=== PATIENT | female | born 1990 | race African-American/Black ===

== ENCOUNTER 2018-04-09 17:00 | Inpatient (IN) | payer OTHER ==
[2018-04-09] MEDS ORDERED: PROMETHAZINE 25 MG/ML VIAL IM PRN (17:23)
[2018-04-09] MEDS ORDERED: BUTORPHANOL 1 MG/ML INJ IV PRN (17:23)
[2018-04-09] MEDS ORDERED: METHYLERGONOVINE 0.2MG/ML AMP IM PRN (17:23)
[2018-04-09] MEDS ORDERED: PENICILLIN 5 MU in NA CHLORIDE 0.9% 100 ML IV ONE (17:23)
[2018-04-09] MEDS ORDERED: Ringers Lactate 1,000 ML IV PRN (17:23)
[2018-04-09] MEDS ORDERED: BUTORPHANOL 1 MG/ML INJ ONE (17:41)
[2018-04-09 17:44] VITALS: BMI 33.0
[2018-04-09 17:49] LABS: RPR Titer ND
[2018-04-09 17:52] LABS: Urine Appearance CLEAR; Urine Bilirubin NEGATIVE (NEG); Urine Blood 1+ (NEG); Urine Color YELLOW; Urine Glucose NEGATIVE (NEG); Urine Protein NEGATIVE (NEG); Urine Specific Gravity <=1.005 (1.005-1.030); Urine Urobilinogen 0.2 mg/dL (0.2-1.0); Urine pH 6.5 (5.0-7.0)
[2018-04-09 17:58] LABS: Absolute Lymphocytes (CBC) 1.4 K/uL (0.7-4.9); Absolute Monocytes 0.9 K/uL (0.1-1.3); Absolute Neutrophil 7.1 K/uL (1.8-8.0); Basophils % 0.2 % (0-1.3); Eosinophils % 0.7 % (0-4.4); Hematocrit 39.2 % (36.0-45.0); MCH 30.8 pg (27.0-35.0); MCV 87.5 fL (80-100); MPV 10.5 fL (7.6-11.3); Monocytes % 9.8 % (3.3-12.3); RBC Red Blood Cell Count 4.48 M/uL (3.86-4.86)
[2018-04-09] MEDS ORDERED: Ringers Lactate 1,000 ML IV SCH (18:00)
[2018-04-09 18:01] LABS: Urine Microscopic Reflex ORDER UMIC
[2018-04-09 18:02] LABS: Urine Bacteria <20 /HPF (<20); Urine Culture Reflex Order NOT NEEDED; Urine RBC <5 /HPF (NONE SEEN)
[2018-04-09] MEDS ORDERED: OXYTOCIN/LR 20 UNIT/1,000 ML BAG IV ONE (18:16)
[2018-04-09] MEDS ORDERED: LIDOCAINE 1% MPF 30 ML VIAL ONE (18:16)
[2018-04-09] MEDS ORDERED: CARBOPROST TROME 250 MCG/ML IM ONE (18:17)
[2018-04-09] MEDS ORDERED: IBUPROFEN 200 MG TAB PO PRN (18:47)
[2018-04-09] MEDS ORDERED: DIPHENHYDRAMINE 25 MG TAB/CAP PO PRN (18:47)
[2018-04-09] MEDS ORDERED: DOCUSATE NA/SENNA CONC 1 TAB PO PRN (18:47)
[2018-04-09] MEDS ORDERED: Oxycodone HCl/Acetaminophen 1 TAB TAB PO PRN ×2 (18:47)
[2018-04-09] MEDS ORDERED: BISACODYL 10 MG RECTAL SUPP RECT PRN (18:47)
[2018-04-09] MEDS ORDERED: ACETAMINOPHEN 500 MG TAB PO PRN (18:47)
[2018-04-09] MEDS ORDERED: OXYTOCIN/LR 20 UNIT/1,000 ML BAG IV SCH (19:00)
[2018-04-09] MEDS ORDERED: PENICILLIN 2.5 MU in NA CHLORIDE 0.9% 100 ML IV SCH (21:00)
--- NOTE | 2018-04-09 21:13 | PREOPHP ---
Date of Admission: 04/09/2018 This is a 27-year-old, 2, para 1, 38 weeks 5 days, followed antepartum without complications. Rh positive, immune to Rubella. Positive beta strep screen. The patient came into our facility in active labor, is noted to be 7-8 cm on admission with bulging membranes, FHTs normal, reactive. We will start her on penicillin prophylaxis and as soon as that is in, we will check her again, possibly rupture of membranes. The patient is doing quite well, requesting no analgesics at this point. DEZ/SONIA Voice ID: [id number]
[2018-04-09 23:08] LABS: RPR (Rapid Plasma Reagin) NON-REACT (NON-REACT)
--- NOTE | 2018-04-10 03:21 | OP ---
Surgeon: Reynold Leon MD Hospital Course: A 27-year-old female, 2, para 1, 38 weeks 5 days, came in and advanced, rap idly advancing labor. 7.5 cm to 8 cm, 100% effaced, bulging membranes on admission. FHTs normal, re active. She is Rh positive, immune to Rubella. Positive beta strep. Got 5 million units of penicil tammy prior to the baby's delivery approximately 1 hour. Rupture of membranes, clear fluid. Second st age of 15 to 20 minutes or less. Spontaneous vaginal delivery of an estimated 6-1/2 to 7 pounds male infant, Apgars 9 and 9. Small first-degree laceration involving the left labia minora, local infilt ration, 3 running locked stitches of 2-0 chromic. Schultze delivery of the placenta was inspected an d noted to be intact and normal. A 300 cc or less blood loss. Tolerated all procedures well. Had 1 mg of Stadol during the labor. Final Diagnoses: Term intrauterine at 38 weeks 5 days, vaginal delivery, penicillin prophy laxis. DEZ/SONIA Voice ID: [id number] Report ID: [id number]
[2018-04-10 15:27] VITALS: TEMP 97.4
[2018-04-10 16:12] VITALS: BP 128/73
[2018-04-13 03:19] LABS: HBsAG Nonreactive (Nonreactive)
--- NOTE | 2018-04-14 08:33 | DS ---
Date of Discharge: 04/10/2018 Hospital Course: Luiza Gonzalez, 27-year-old female, 2, para 1, 38 weeks 5 days, came in in act adrian rapidly advancing labor, 7 cm, bulging membranes on admission. Went rapidly to complete. Was gi facundo 1 dose of penicillin units. Delivery of an estimated 6-1/2 to 7-pound male infant, Ap gars 9 and 9. Local infiltration for repair of small first degree laceration on the left labia minor a, 3 stitches. Casanova delivery of the placenta, inspected and noted to be intact and normal. Less t townsend 300 cc blood loss. afebrile, ambulating and voiding. Lochia is normal. Blood pressu res are slightly elevated. The patient has no TECHNICAL SPEC symptoms. No protein in the urine and reflexes ar e all normal. We will monitor the blood pressures during the day. If they remain elevated, probably we will send patient home on Norvasc 5 mg; however, blood pressures are moderating. The last blood pressure was about 140/85 range. We will monitor those during the day. If they continue to decrease to normal range, we will simply continue to monitor. Patient does not have preeclampsia. Final Diagnoses: Intrauterine gestation, 38 weeks 5 days, vaginal delivery, penicillin prophylaxis. Mild hypertension being monitored. DEZ/SONIA Voice ID: [id number] Report ID: [id number]
== END 2018-04-10 16:55 | disposition home or self-care (01) | DRG 807 ==
LOC: L&D 17:00 → 2ND-WC 17:29
PROVIDERS: ADMIT Specialist; ATTEND Specialist
PROC: 10907ZC Drainage of Amniotic Fluid, Therapeutic from Products of Conception, Via Natural or Artificial Opening (ICD-10-PCS; principal; 2018-04-09)
PROC: 10E0XZZ Delivery of Products of Conception, External Approach (ICD-10-PCS; 2018-04-09)
PROC: 0HQ9XZZ Repair Perineum Skin, External Approach (ICD-10-PCS; 2018-04-09)
DX: O70.0 First degree perineal laceration during delivery (principal); Z37.0 Single live birth; O99.824 Streptococcus B carrier state complicating childbirth; Z3A.38 38 weeks gestation of pregnancy; O16.4 Unspecified maternal hypertension, complicating childbirth
CPT/HCPCS: 36415; 81003; 81015; 85025; 86592; 86850; 86900; 86901; 87340; 96372; 99218; J0595; J2175; J2210; J2550; J2590